=== PATIENT | male | born 1960 | race Caucasian/White ===

== ENCOUNTER → 2018-09-19 | Outpatient (CLI) | payer SELFPAY ==
--- NOTE | 2018-09-19 14:31 | PCVCIMAG ---
APPROVED REPORT Study performed: 09/19/2018 12:58:47 EXAM: Comprehensive 2D, Doppler, and color-flow Echocardiogram Patient Location: Echo lab Room #: 3Status: routine BSA: 2.30 HR: 70 bpmBP: 106/70 mmHg Rhythm: LBBB Other Information Study Quality: Adequate Risk Factors: Cardiac Risk Factors: HTN Indications Pacemaker Cardiomyopathy 2D Dimensions IVSd: 11.04 (7-11mm)LVOT Diam: 22.00 (18-24mm) LVDd: 46.54 mm PWd: 11.12 (7-11mm)Ascending Ao: 42.56 (22-36mm) LVDs: 38.00 (25-40mm) Left Atrium: 38.64 (27-40mm) Aortic Root: 33.75 mm LV Single Plane 4CH: 44.94 % LV Single Plane 2CH: 55.07 % Biplane EF: 48.8 % Volumes Left Atrial Volume (Systole) Single Plane 4CH: 45.99 mLSingle Plane 2CH: 47.30 mL LA ESV Index: 21.00 mL/m2 Aortic Valve AoV Peak Shubham.: 1.53 m/s AO Peak Gr.: 10.26 mmHgLVOT Max P.97 mmHg LVOT Max V: 1.00 m/s KETTY Vmax: 2.45 cm2 AI Vmax: 3.40 m/s AI [place]: 1.43 m/s2 AI PHT: 690.72 ms Mitral Valve E/A Ratio: 0.6 MV Decel. Time: 242.15 ms MV E Max Shubham.: 0.57 m/s MV A Shubham.: 0.97 m/s IVRT: 44.98 ms TDI E/Lateral E': 8.14E/Medial E': 11.40 Medial E' Shubham.: 0.05 m/s Lateral E' Shubham.: 0.07 m/s Pulmonary Valve PV Peak Shubham.: 1.11 m/sPV Peak Gr.: 4.94 mmHg Pulmonary Vein P Vein S: 0.62 m/sP Vein A: 0.29 m/s P Vein D: 0.32 m/sP Vein A Dur.: 96.9 msec P Vein S/D Ratio: 1.94 Tricuspid Valve TR Peak Shubham.: 2.01 m/sRAP Estimate: 7.00 mmHg TR Peak Gr.: 16.15 mmHg PA Pressure: 23.00 mmHg Left Ventricle The left ventricle is normal size. There is normal LV segmental wall motion. Borderline concentric left ventricular hypertrophy. Left ventricular systolic function is mildly decreased. LVEF is 45-50%. Mild diastolic dysfunction is present (impaired relaxation pattern). Right Ventricle The right ventricle is normal size. The right ventricular systolic function is normal. Atria The left atrium size is normal. The right atrium size is normal. Aortic Valve The aortic valve is normal in structure. Mild aortic regurgitation. There is no aortic valvular stenosis. Mitral Valve The mitral valve is normal in structure. There is no mitral valve regurgitation noted. No evidence of mitral valve stenosis. Tricuspid Valve The tricuspid valve is normal in structure. Trace tricuspid regurgitation. Pulmonary artery pressure is 23 mmHg. Pulmonic Valve The pulmonary valve is normal in structure. There is no pulmonic valvular regurgitation. Great Vessels The aortic root is normal in size. The ascending aorta measures 4.3 cm. IVC is normal in size and collapses >50% with inspiration. Pericardium There is no pericardial effusion. <Conclusion> The left ventricle is normal size. Borderline concentric left ventricular hypertrophy. Left ventricular systolic function is mildly decreased. LVEF is 45-50%. Mild diastolic dysfunction is present (impaired relaxation pattern). The right ventricle is normal size. The left atrium size is normal. The right atrium size is normal. Mild aortic regurgitation. The mitral valve is normal in structure. Trace tricuspid regurgitation. Pulmonary artery pressure is 23 mmHg.
== END | disposition home or self-care (01) ==
LOC: PCVCIMAG 12:56
PROVIDERS: ATTEND Internal Medicine Cardiovascular Disease
DX: I35.1 Nonrheumatic aortic (valve) insufficiency (principal); I11.0 Hypertensive heart disease with heart failure; I50.22 Chronic systolic (congestive) heart failure; I10 Essential (primary) hypertension; I44.7 Left bundle-branch block, unspecified; G47.33 Obstructive sleep apnea (adult) (pediatric); Z95.810 Presence of automatic (implantable) cardiac defibrillator
CPT/HCPCS: 93306